=== PATIENT | female | born 1995 | race Caucasian/White ===

== ENCOUNTER 2016-02-26 18:46 | Emergency (ER) | payer OTHER ==
[~2016-02-26] VITALS: Ht 157.5 cm; Wt 61.7 kg
[2016-02-26 19:00] VITALS: Ht 157.5 cm; Wt 61.7 kg
[2016-02-26] MEDS ORDERED: SODIUM CHLORIDE 0.9% 500ML 500 ML IV STA (20:04)
[2016-02-26] MEDS ORDERED: SODIUM CHLORIDE 0.9% 1000ML 1,000 ML IV STA (20:04)
[2016-02-26 20:10] LABS: BASO % 0.2 %; BASO ABS # 0.03 K/uL (0-0.2); COMPLETE YES; HEMATOCRIT 37.7 % (37-47); IG% 0.2 %; LYMPH % 24.3 %; MEAN CELL VOLUME 87.7 fL (80-100); MEAN CORPUSCULAR HGB CONC 34.2 g/dl (32-36); MEAN PLATELET VOLUME 10.9 fL (7.4-10.4); MONO % 7.1 %; NEUT % 67.2 %; PLATELET COUNT 260 K/uL (130-400); WHITE BLOOD COUNT 12.74 K/uL (4.8-10.8)
[2016-02-26 20:14] LABS: URINE APPEARANCE TURBID (CLEAR); URINE BILIRUBIN NEG (NEG); URINE COLOR YELLOW; URINE EPITHELIAL CELL AUTO 20-30 /lpf (0-5); URINE NITRITE NEG (NEG); URINE PH 7.5 (4.5-7.5); URINE SPECIFIC GRAVITY 1.022 (1.000-1.030); UROBILINOGEN NEG (NEG); ZZUR CULT IF INDIC CLEAN CATCH YES
[2016-02-26 20:15] LABS: MANUAL MICROSCOPIC REQUIRED? NO; REVIEW REQ? NO
[2016-02-26] MEDS ORDERED: FAMOTIDINE 20 MG TAB PO ONE (20:15)
[2016-02-26 20:27] LABS: ALT/SGPT 16 U/L (12-78); BLOOD UREA NITROGEN 13 mg/dl (7-18); BUN/CREATININE RATIO 29.3 (10-20); CALCIUM 8.9 mg/dl (8.5-10.1); CARBON DIOXIDE 26 mmol/L (21-32); CHLORIDE 107 mmol/L (98-107); CREATININE 0.44 mg/dl (0.60-1.20); GLUCOSE 80 mg/dl (70-99); POTASSIUM 3.6 mmol/L (3.5-5.1); SODIUM 142 mmol/L (136-145)
[2016-02-26 20:30] LABS: ALKALINE PHOSPHATASE 36 U/L (45-117); AST/SGOT 16 U/L (15-37)
--- NOTE | 2016-02-26 20:38 | EMERGENCY ROOM VISIT NOTE ---
History Report prepared by Laila: Juvenal Lindo Under the Supervision of: Dr. Isamar Newton M.D. First contact with patient: 20:00 Chief Complaint: ABDOMINAL PAIN Stated Complaint: ABDOMINAL PAIN Nursing Triage Summary: pt c/o abd pain that comes and goes, states a couple weeks ago was constipated History of Present Illness The patient is a 20 year old female who presents to the Emergency Room with complaints of waxing and waning left upper quadrant abdominal pain that began two weeks prior to arrival. The patient describes her pain as sharp and notices the pain the most when she is hungry. She did note a fever of 99 degrees a few days ago, but it has resolved at this time. She denies any urinary irregularities and had her LNMP three weeks ago, which was on schedule with her control. She denies any unusual vaginal discharge. Source of History: patient Onset: Two weeks [employer] Position: abdomen (RUQ) Quality: sharp Associated Symptoms: + fevers Review of Systems See HPI for pertinent positives & negatives. A total of 10 systems reviewed and were otherwise negative. Past Medical & Surgical No past medical/surgical history Family History No pertinent family history. Social History Smoking Status: Never Smoker Marital Status: in relationship Housing Status: lives with roommate Occupation Status: [employer] student Current/Historical Medications Scheduled Control Pills ( Control Pills), 1 TAB PO DAILY Famotidine (Pepcid), 20 MG PO BID Allergies Coded Allergies: No Known Allergies (Unverified , 02/26/16) Physical Exam Vital Signs Date Time Temp Pulse Resp B/P Pulse Ox O2 Delivery O2 Flow Rate FiO2 02/26/16 23:17 37.0 91 18 102/62 99 02/26/16 23:12 91 18 102/62 99 Room Air 02/26/16 19:00 37.0 95 18 104/60 96 Room Air Physical Exam Vital signs reviewed. General: Well-appearing female, in no significant distress. HEENT: No scleral icterus, PERRLA, neck supple. Atraumatic. Cardiovascular: Regular rate and rhythm, no extra sounds. Pulmonary: Clear to auscultation bilaterally, normal work of breathing. Abdomen: Mild left upper quadrant abdominal pain. Soft, nontender, nondistended , positive bowel sounds. Musculoskeletal: Atraumatic, no peripheral edema. Neurologic: Patient awake alert and oriented x 3 Skin: Warm, dry, no rash Medical Decision & Procedures ER Provider Diagnostic Interpretation: X-ray results as stated below per my interpretation and radiologist interpretation. Other radiology results as stated below per my review and radiologist interpretation: ECTOPIC ULTRASOUND CLINICAL HISTORY: Pelvic pain and positive test COMPARISON STUDY: No previous studies for comparison. FINDINGS: A single live intrauterine gestation was visualized. A normal-appearing yolk sac was visualized. The crown-rump length measured 17 mm corresponding to an estimated postmenstrual age of 8 weeks and 1 day. There is a suspected trace subchorionic hemorrhage. The patient refused endovaginal scanning. The maternal right ovary measured 39 x 15 x 18 mm. The maternal left ovary measured 36 x 17 x 22 mm. There is a 13 mm left ovarian corpus luteum. The embryonic heart rate was 162. IMPRESSION: 1. Single alive intrauterine gestation. The estimated postmenstrual age is 8 weeks and 1 day 2. Suspected trace subcutaneous chorionic hemorrhage 3. Patient refused endovaginal scanning Electronically signed by: Darrick Sanders M.D. 02/26/2016 9:28 PM Dictated Date/Time: 02/26/2016 9:26 PM Laboratory Results 02/26/16 19:55 Red Blood Count 4.30, Mean Corpuscular Volume 87.7, Mean Corpuscular Hemoglobin 30.0, Mean Corpuscular Hemoglobin Concent 34.2, Mean Platelet Volume 10.9, Neutrophils (%) (Auto) 67.2, Lymphocytes (%) (Auto) 24.3, Monocytes (%) (Auto) 7.1, Eosinophils (%) (Auto) 1.0, Basophils (%) (Auto) 0.2, Neutrophils # (Auto) 8.56, Lymphocytes # (Auto) 3.10, Monocytes # (Auto) 0.90, Eosinophils # (Auto) 0.13, Basophils # (Auto) 0.03 02/26/16 19:55 Test 02/26/16 19:55 White Blood Count 12.74 K/uL (4.8-10.8) Red Blood Count 4.30 M/uL (4.2-5.4) Hemoglobin 12.9 g/dL (12.0-16.0) Hematocrit 37.7 % (37-47) Mean Corpuscular Volume 87.7 fL (80-100) Mean Corpuscular Hemoglobin 30.0 pg (25-34) Mean Corpuscular Hemoglobin Concent 34.2 g/dl (32-36) Platelet Count 260 K/uL (130-400) Mean Platelet Volume 10.9 fL (7.4-10.4) Neutrophils (%) (Auto) 67.2 % Lymphocytes (%) (Auto) 24.3 % Monocytes (%) (Auto) 7.1 % Eosinophils (%) (Auto) 1.0 % Basophils (%) (Auto) 0.2 % Neutrophils # (Auto) 8.56 K/uL (1.4-6.5) Lymphocytes # (Auto) 3.10 K/uL (1.2-3.4) Monocytes # (Auto) 0.90 K/uL (0.11-0.59) Eosinophils # (Auto) 0.13 K/uL (0-0.5) Basophils # (Auto) 0.03 K/uL (0-0.2) RDW Standard Deviation 42.6 fL (36.4-46.3) RDW Coefficient of Variation 13.3 % (11.5-14.5) Immature Granulocyte % (Auto) 0.2 % Immature Granulocyte # (Auto) 0.02 K/uL (0.00-0.02) Urine Color YELLOW Urine Appearance TURBID (CLEAR) Urine pH 7.5 (4.5-7.5) Urine Specific [place] 1.022 (1.000-1.030) Urine Protein NEG (NEG) Urine Glucose (UA) NEG (NEG) Urine Ketones NEG (NEG) Urine Occult Blood NEG (NEG) Urine Nitrite NEG (NEG) Urine Bilirubin NEG (NEG) Urine Urobilinogen NEG (NEG) Urine Leukocyte Esterase NEG (NEG) Urine WBC (Auto) 1-5 /hpf (0-5) Urine RBC (Auto) 0-4 /hpf (0-4) Urine Hyaline Casts (Auto) 1-5 /lpf (0-5) Urine Epithelial Cells (Auto) 20-30 /lpf (0-5) Urine Bacteria (Auto) 1+ (NEG) Anion Gap 9.0 mmol/L (3-11) Est Creatinine Clear Calc Drug Dose 174.8 ml/min Estimated GFR () > 150.0 Estimated GFR (Non- 144.3 BUN/Creatinine Ratio 29.3 (10-20) Calcium Level 8.9 mg/dl (8.5-10.1) Total Bilirubin 0.1 mg/dl (0.2-1) Aspartate Amino Transf (AST/SGOT) 16 U/L (15-37) Alanine Aminotransferase (ALT/SGPT) 16 U/L (12-78) Alkaline Phosphatase 36 U/L (45-117) Total Protein 6.9 gm/dl (6.4-8.2) Albumin 3.5 gm/dl (3.4-5.0) Globulin 3.4 gm/dl (2.5-4.0) Albumin/Globulin Ratio 1.0 (0.9-2) Lipase 155 U/L (73-393) Human Chorionic Gonadotropin, Quant 43551 mIU/mL Date/Time Source Procedure Growth Status 02/26/16 19:55 Urine , Clean Catch Urine Culture - Final Lactobacillus Species Complete Laboratory results per my review. Medications Administered Medications (Trade) Dose Ordered Sig/Bon Route Start Time Stop Time Status Last Admin Dose Admin Famotidine 20 mg 20 mg NOW ONCE PO 02/26/16 20:15 02/26/16 20:16 DC 02/26/16 20:23 20 MG Sodium Chloride 1,000 ml @ 125 mls/hr Q8H STAT IV 02/26/16 20:04 02/27/16 00:10 DC 02/26/16 20:04 125 MLS/HR Sodium Chloride (Nss 500ml) 500 ml @ 999 mls/hr Q31M STAT IV 02/26/16 20:04 02/26/16 20:34 DC 02/26/16 20:04 999 MLS/HR ED Course 2002: Past medical records reviewed. The patient was evaluated in room C12. A complete history and physical examination was performed. 2004: Ordered Sodium Chloride 500 mL @ 999 mL/hr IV, Sodium Chloride 1000 mL @ 125 mL/hr IV. 2015: Ordered Famotidine 20 mg PO. 9: Upon reevaluation, the patient appeared to have improvement of her symptoms. I discussed the results of the tests with the patient. I discussed findings with her. She verbalized agreement of the treatment plan. The patient was discharged home Medical Decision The patient's history was concerning for abdominal pain. Differential diagnosis: Etiologies such as appendicitis, diverticulitis, PUD, biliary pathology, UTI, pancreatitis, obstruction, mesenteric ischemia, aortic pathology, infections, inflammatory bowel disease, renal colic, as well as others were entertained. This patient was evaluated and appeared to be in no significant distress. Patient's urine test is positive. This was surprising to the patient. Ultrasound of the pelvis was performed and reveals an approximate 8 week gestation. Patient was given 20 mg of Pepcid for her gastritis symptoms. Laboratory work reveals a mild leukocytosis which is consistent with her . Urinalysis is negative. Patient was informed of the findings. She was given resources for outpatient follow-up. She will return to the ER for worsening of symptoms or any medical concerns. Impression Primary Impression: First trimester Additional Impression: Gastritis Scribe Attestation The scribe's documentation has been prepared under my direction and personally reviewed by me in its entirety. I confirm that the note above accurately reflects all work, treatment, procedures, and medical decision making performed by me. Departure Information Dispostion Home / Self-Care Prescriptions Famotidine (Pepcid) 20 Mg Tab 20 MG PO BID, #60 TAB Prov: Isamar Newton M.D. 02/26/16 Forms HOME CARE DOCUMENTATION FORM, IMPORTANT VISIT INFORMATION Patient Instructions My [facility] Additional Instructions Diagnosis: First trimester , gastritis Pepcid 20 mg twice daily for 30 days. Drink plenty of clear fluids. Start a vitamin with iron daily. Avoid alcohol, cigarettes, aspirin or ibuprofen. Follow-up with [facility] as soon as possible to initiate care. Return to the emergency department for worsening of symptoms or any medical concerns. Problem Qualifiers Additional Impression: Gastritis Gastritis type: unspecified gastritis Chronicity: acute Gastritis bleeding : without bleeding Qualified Codes: K29.00 - Acute gastritis without bleeding
--- NOTE | 2016-02-26 21:30 | DIAGNOSTIC IMAGING REPORT ---
ECTOPIC ULTRASOUND CLINICAL HISTORY: Pelvic pain and positive test COMPARISON STUDY: No previous studies for comparison. FINDINGS: A single live intrauterine gestation was visualized. A normal-appearing yolk sac was visualized. The crown-rump length measured 17 mm corresponding to an estimated postmenstrual age of 8 weeks and 1 day. There is a suspected trace subchorionic hemorrhage. The patient refused endovaginal scanning. The maternal right ovary measured 39 x 15 x 18 mm. The maternal left ovary measured 36 x 17 x 22 mm. There is a 13 mm left ovarian corpus luteum. The embryonic heart rate was 162. IMPRESSION: 1. Single alive intrauterine gestation. The estimated postmenstrual age is 8 weeks and 1 day 2. Suspected trace subcutaneous chorionic hemorrhage 3. Patient refused endovaginal scanning Electronically signed by: Darrick Sanders M.D. 02/26/2016 9:28 PM Dictated Date/Time: 02/26/2016 9:26 PM
[2016-02-26] MEDS ORDERED: FAMO20TA11 PO (22:11)
[2016-02-26 23:17] VITALS: BP 102/62; PULSE 91; TEMP 37; O2SAT 99
== END 2016-02-26 23:18 | disposition home or self-care (01) ==
LOC: C.EDB 18:48 → C.EDC 23:18
DX: K29.00 Acute gastritis without bleeding (principal); Z33.1 Pregnant state, incidental

== ENCOUNTER 2016-04-15 16:15 | Emergency (ER) | payer OTHER ==
[~2016-04-15] VITALS: Ht 154.9 cm; Wt 62.4 kg
[~2016-04-15 16:15] MED LIST: FAMO20TA11 PO
[2016-04-15 16:18] VITALS: TEMP 36.9; Ht 154.9 cm; Wt 62.4 kg
[2016-04-15] MEDS ORDERED: IBUPROFEN 600 MG TAB PO STA (16:28)
[2016-04-15] MEDS ORDERED: ASCO500C43 PO (16:31)
[2016-04-15] MEDS ORDERED: MULT-513 PO (16:31)
--- NOTE | 2016-04-15 17:04 | DIAGNOSTIC IMAGING REPORT ---
RIGHT TIBIA AND FIBULA 2 VIEWS CLINICAL HISTORY: Right leg injury. FINDINGS: AP and lateral views of the right tibia and fibula are obtained. No prior studies are available for comparison at the time of dictation. The skeletal structures are well mineralized. No fracture is seen. The knee and ankle joints are grossly maintained. Pretibial soft tissue edema is noted. IMPRESSION: Pretibial soft tissue edema with no radiographic evidence of fracture. Electronically signed by: Louie Nevarez M.D. 04/15/2016 5:03 PM Dictated Date/Time: 04/15/2016 5:02 PM
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
[2016-04-15 17:17] VITALS: BP 109/74; PULSE 60; O2SAT 98
[2016-04-15] MEDS ORDERED: BCPILLS PO (21:57)
== END 2016-04-15 17:18 | disposition home or self-care (01) ==
LOC: C.EDB 16:16 → C.EDD 17:18
DX: S80.11XA Contusion of right lower leg, initial encounter (principal); Z79.3 Long term (current) use of hormonal contraceptives; J45.909 Unspecified asthma, uncomplicated; V03.10XA Pedestrian on foot injured in collision with car, pick-up truck or van in traffic accident, initial encounter

== ENCOUNTER 2017-01-31 18:46 | Emergency (ER) | payer OTHER ==
[~2017-01-31] VITALS: Ht 154.9 cm; Wt 63.4 kg
[~2017-01-31 18:46] MED LIST changes: +ASCO500C43 PO; -FAMO20TA11 PO; +MULT-513 PO
[2017-01-31 18:50] VITALS: TEMP 36.8; Ht 154.9 cm; Wt 63.4 kg
[2017-01-31 19:43] LABS: BASO % 0.3 %; BASO ABS # 0.03 K/uL (0-0.2); COMPLETE YES; EOS % 1.8 %; HEMATOCRIT 36.9 % (37-47); IG% 0.2 %; LYMPH % 29.4 %; LYMPH ABS # 3.18 K/uL (1.2-3.4); MEAN CELL VOLUME 87.4 fL (80-100); MEAN CORPUSCULAR HEMOGLOBIN 30.1 pg (25-34); MEAN CORPUSCULAR HGB CONC 34.4 g/dl (32-36); MEAN PLATELET VOLUME 10.7 fL (7.4-10.4); MONO % 8.8 %; NEUT % 59.5 %; PLATELET COUNT 225 K/uL (130-400); RED BLOOD COUNT 4.22 M/uL (4.2-5.4); WHITE BLOOD COUNT 10.82 K/uL (4.8-10.8)
[2017-01-31 20:04] LABS: ALT/SGPT 17 U/L (12-78); BLOOD UREA NITROGEN 10 mg/dl (7-18); BUN/CREATININE RATIO 20.2 (10-20); CALCIUM 8.6 mg/dl (8.5-10.1); CARBON DIOXIDE 25 mmol/L (21-32); CHLORIDE 106 mmol/L (98-107); CREATININE 0.49 mg/dl (0.60-1.20); GLUCOSE 83 mg/dl (70-99); POTASSIUM 3.6 mmol/L (3.5-5.1); SODIUM 137 mmol/L (136-145)
[2017-01-31 20:07] LABS: ALB/GLOB RATIO 1.2 (0.9-2); ALKALINE PHOSPHATASE 42 U/L (45-117); AST/SGOT 15 U/L (15-37)
[2017-01-31 20:19] LABS: URINE APPEARANCE CLOUDY (CLEAR); URINE BILIRUBIN NEG (NEG); URINE COLOR YELLOW; URINE EPITHELIAL CELL AUTO >30 /lpf (0-5); URINE NITRITE NEG (NEG); URINE PH 6.5 (4.5-7.5); URINE SPECIFIC GRAVITY 1.025 (1.000-1.030); UROBILINOGEN NEG (NEG); ZZUR CULT IF INDIC CLEAN CATCH YES
[2017-01-31 20:22] LABS: MANUAL MICROSCOPIC REQUIRED? NO; REVIEW REQ? NO
[2017-01-31] MEDS ORDERED: PROAIR INH (20:32)
[2017-01-31] MEDS ORDERED: BCPILLS PO (21:57)
[2017-01-31 22:33] VITALS: BP 99/64; PULSE 68; O2SAT 99
--- NOTE | 2017-01-31 22:44 | DIAGNOSTIC IMAGING REPORT ---
LIMITED (US), TRANSVAGINAL CLINICAL HISTORY: 21 years-old Female presenting with , LUQ pain. TECHNIQUE: Real-time grayscale and M-mode Doppler ultrasound imaging of the pelvis was performed first using a transabdominal probe and subsequently transvaginal for better characterization. Additionally, color and spectral Doppler ultrasound imaging of the adnexa was performed. COMPARISON: 02/26/2016. FINDINGS: Uterus: Single live intrauterine . A normal-appearing yolk sac and pole are visualized. [place]-rump length measures 9 mm with an estimated gestational age of 6 weeks 6 days. heart rate 137 beats per minute. Anteverted uterus. Normal amniotic fluid volume. Unable to accurately assess placental implantation secondary to early gestational age. No perigestational fluid to suggest hemorrhage. Cervix long and closed. Right adnexa: Right ovary normal. Right ovary measures 3.2 x 1.6 x 1.7 cm. Normal color Doppler flow and arterial and venous waveforms within the ovarian parenchyma. Left adnexa: Left ovary contains a corpus luteum. Left ovary measures 3.5 x 2.5 x 2.1 cm. Normal color Doppler flow and arterial and venous waveforms within the ovarian parenchyma. Other: No free fluid. IMPRESSION: Single live intrauterine with estimated gestational age 6 weeks 6 days. No ovarian torsion. Left corpus luteum. Electronically signed by: Sammy Reddy M.D. 01/31/2017 10:42 PM Dictated Date/Time: 01/31/2017 10:39 PM
[2017-01-31] MEDS ORDERED: ONDA4TAB10 SL (22:55)
[2017-01-31] MEDS ORDERED: FAMO20TA9 PO (22:55)
--- NOTE | 2017-01-31 22:56 | EMERGENCY ROOM VISIT NOTE ---
History First contact with patient: 18:52 Chief Complaint: ABDOMINAL PAIN Stated Complaint: ABDOMINAL PAIN Nursing Triage Summary: PT presents with LUQ abd pain X 1 week with nausea. PT has no vomiting, denies any diarrhea, PT does have intermittent fever. PT denies any urinay symptoms. History of Present Illness The patient is a 21 year old female who presents to the Emergency Room with complaints of Social History Smoking Status: Never Smoker Marital Status: in relationship Housing Status: lives with roommate Occupation Status: [employer] student Current/Historical Medications Scheduled Control Pills ( Control Pills), 1 TAB PO DAILY Famotidine (Pepcid), 1 TAB PO BID Ondasetron Odt (Zofran Odt), 4 MG SL Q6H Scheduled PRN [Proair], 2 PUFF INH Q4H PRN for SOB/Wheezing Physical Exam Vital Signs Date Time Temp Pulse Resp B/P (MAP) Pulse Ox O2 Delivery O2 Flow Rate FiO2 01/31/17 22:33 68 16 99/64 99 Room Air 01/31/17 21:34 75 16 111/50 98 Room Air 01/31/17 20:30 71 111/64 99 Room Air 01/31/17 19:57 70 16 112/62 98 Room Air 01/31/17 18:50 36.8 100 18 116/78 98 Room Air Medical Decision & Procedures Laboratory Results 01/31/17 19:30 Red Blood Count 4.22, Mean Corpuscular Volume 87.4, Mean Corpuscular Hemoglobin 30.1, Mean Corpuscular Hemoglobin Concent 34.4, Mean Platelet Volume 10.7, Neutrophils (%) (Auto) 59.5, Lymphocytes (%) (Auto) 29.4, Monocytes (%) (Auto) 8.8, Eosinophils (%) (Auto) 1.8, Basophils (%) (Auto) 0.3, Neutrophils # (Auto) 6.44, Lymphocytes # (Auto) 3.18, Monocytes # (Auto) 0.95, Eosinophils # (Auto) 0.20, Basophils # (Auto) 0.03 01/31/17 19:30 Test 01/31/17 19:30 01/31/17 19:51 White Blood Count 10.82 K/uL (4.8-10.8) Red Blood Count 4.22 M/uL (4.2-5.4) Hemoglobin 12.7 g/dL (12.0-16.0) Hematocrit 36.9 % (37-47) Mean Corpuscular Volume 87.4 fL (80-100) Mean Corpuscular Hemoglobin 30.1 pg (25-34) Mean Corpuscular Hemoglobin Concent 34.4 g/dl (32-36) Platelet Count 225 K/uL (130-400) Mean Platelet Volume 10.7 fL (7.4-10.4) Neutrophils (%) (Auto) 59.5 % Lymphocytes (%) (Auto) 29.4 % Monocytes (%) (Auto) 8.8 % Eosinophils (%) (Auto) 1.8 % Basophils (%) (Auto) 0.3 % Neutrophils # (Auto) 6.44 K/uL (1.4-6.5) Lymphocytes # (Auto) 3.18 K/uL (1.2-3.4) Monocytes # (Auto) 0.95 K/uL (0.11-0.59) Eosinophils # (Auto) 0.20 K/uL (0-0.5) Basophils # (Auto) 0.03 K/uL (0-0.2) RDW Standard Deviation 42.7 fL (36.4-46.3) RDW Coefficient of Variation 13.3 % (11.5-14.5) Immature Granulocyte % (Auto) 0.2 % Immature Granulocyte # (Auto) 0.02 K/uL (0.00-0.02) Anion Gap 6.0 mmol/L (3-11) Est Creatinine Clear Calc Drug Dose 153.6 ml/min Estimated GFR () > 150.0 Estimated GFR (Non- 138.3 BUN/Creatinine Ratio 20.2 (10-20) Calcium Level 8.6 mg/dl (8.5-10.1) Total Bilirubin 0.2 mg/dl (0.2-1) Aspartate Amino Transf (AST/SGOT) 15 U/L (15-37) Alanine Aminotransferase (ALT/SGPT) 17 U/L (12-78) Alkaline Phosphatase 42 U/L (45-117) Total Protein 7.1 gm/dl (6.4-8.2) Albumin 3.8 gm/dl (3.4-5.0) Globulin 3.3 gm/dl (2.5-4.0) Albumin/Globulin Ratio 1.2 (0.9-2) Lipase 148 U/L (73-393) Human Chorionic Gonadotropin, Quant 12207 mIU/mL Urine Color YELLOW Urine Appearance CLOUDY (CLEAR) Urine pH 6.5 (4.5-7.5) Urine Specific [place] 1.025 (1.000-1.030) Urine Protein NEG (NEG) Urine Glucose (UA) NEG (NEG) Urine Ketones NEG (NEG) Urine Occult Blood NEG (NEG) Urine Nitrite NEG (NEG) Urine Bilirubin NEG (NEG) Urine Urobilinogen NEG (NEG) Urine Leukocyte Esterase SMALL (NEG) Urine WBC (Auto) 10-30 /hpf (0-5) Urine RBC (Auto) 0-4 /hpf (0-4) Urine Hyaline Casts (Auto) 5-10 /lpf (0-5) Urine Epithelial Cells (Auto) >30 /lpf (0-5) Urine Bacteria (Auto) 3+ (NEG) Urine Test POS (NEG) Departure Information Dispostion Home / Self-Care Condition GOOD Prescriptions Ondasetron Odt (ZOFRAN ODT) 4 Mg Tab 4 MG SL Q6H for Nausea, #30 TAB Prov: Jossie Rush PA-C 01/31/17 Famotidine (PEPCID) 20 Mg Tab 1 TAB PO BID for 30 Days, #60 TAB Prov: Jossie Rush PA-C 01/31/17 Referrals No Doctor, Assigned (PCP) Patient Instructions My [facility] Additional Instructions Pepcid: 1 tablet twice daily for the first 30 days. You have been prescribed Zofran to be used for any nausea or vomiting. Take as prescribed. You may also try malcolm for nausea. Tylenol as needed for pain. Follow-up with [facility] as scheduled. Return to the emergency department with worsening abdominal pain, lower abdominal pain, vaginal bleeding or any other new/concerning symptoms.
--- NOTE | 2017-01-31 23:00 | EMERGENCY ROOM VISIT NOTE ---
History First contact with patient: 18:52 Chief Complaint: ABDOMINAL PAIN Stated Complaint: ABDOMINAL PAIN Nursing Triage Summary: PT presents with LUQ abd pain X 1 week with nausea. PT has no vomiting, denies any diarrhea, PT does have intermittent fever. PT denies any urinay symptoms. History of Present Illness The patient is a 21 year old female who presents to the Emergency Room with complaints of left upper quadrant abdominal pain for the past one week. She describes this as an irritated feeling and rates the discomfort a 7/10. She reports associated nausea without vomiting. She does report having intermittent fevers. The patient has a history of gastritis and states that these symptoms feel exactly the same. She previously was prescribed a medication which she took daily which improved her symptoms. 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 The patient states that she believes she is 4-5 weeks . She had a positive urine test at home. Her last menstrual period was December 29. She does have an appointment set up with [facility], but has not yet seen them for this . She denies any changes in bowel movements or urinary symptoms. She denies any lower abdominal pain or vaginal bleeding. Review of Systems A complete 10 point review of systems was reviewed with the patient with pertinent positives and negatives as per history of present illness. All else were negative. Social History Smoking Status: Never Smoker Alcohol Use: none Marital Status: in relationship Housing Status: lives with roommate Occupation Status: [employer] student Current/Historical Medications Scheduled Control Pills ( Control Pills), 1 TAB PO DAILY Famotidine (Pepcid), 1 TAB PO BID Ondasetron Odt (Zofran Odt), 4 MG SL Q6H Scheduled PRN [Proair], 2 PUFF INH Q4H PRN for SOB/Wheezing Physical Exam Vital Signs Date Time Temp Pulse Resp B/P (MAP) Pulse Ox O2 Delivery O2 Flow Rate FiO2 01/31/17 22:33 68 16 99/64 99 Room Air 01/31/17 21:34 75 16 111/50 98 Room Air 01/31/17 20:30 71 111/64 99 Room Air 01/31/17 19:57 70 16 112/62 98 Room Air 01/31/17 18:50 36.8 100 18 116/78 98 Room Air Physical Exam VITALS: Vitals are noted on the nurse's note and reviewed by myself. Vital signs stable. GENERAL: This is a 21-year-old female, in no acute distress, nondiaphoretic, well-developed well-nourished. SKIN: The skin was without rashes. MOUTH: Mucous membranes moist. HEART: Regular rate and rhythm without murmurs gallops or rubs. LUNGS: Clear to auscultation bilaterally without wheezes, rales or rhonchi. ABDOMEN: Positive bowel sounds x 4. Soft, minimal tenderness to palpation in the left upper quadrant. No guarding or rebound tenderness. No tenderness to palpation of the lower abdomen. NEURO: Patient was alert and oriented to person place and time. Medical Decision & Procedures ER Provider Diagnostic Interpretation: LIMITED (US), TRANSVAGINAL CLINICAL HISTORY: 21 years-old Female presenting with , LUQ pain. TECHNIQUE: Real-time grayscale and M-mode Doppler ultrasound imaging of the pelvis was performed first using a transabdominal probe and subsequently transvaginal for better characterization. Additionally, color and spectral Doppler ultrasound imaging of the adnexa was performed. COMPARISON: 02/26/2016. FINDINGS: Uterus: Single live intrauterine . A normal-appearing yolk sac and pole are visualized. [place]-rump length measures 9 mm with an estimated gestational age of 6 weeks 6 days. heart rate 137 beats per minute. Anteverted uterus. Normal amniotic fluid volume. Unable to accurately assess placental implantation secondary to early gestational age. No perigestational fluid to suggest hemorrhage. Cervix long and closed. Right adnexa: Right ovary normal. Right ovary measures 3.2 x 1.6 x 1.7 cm. Normal color Doppler flow and arterial and venous waveforms within the ovarian parenchyma. Left adnexa: Left ovary contains a corpus luteum. Left ovary measures 3.5 x 2.5 x 2.1 cm. Normal color Doppler flow and arterial and venous waveforms within the ovarian parenchyma. Other: No free fluid. IMPRESSION: Single live intrauterine with estimated gestational age 6 weeks 6 days. No ovarian torsion. Left corpus luteum. Laboratory Results 01/31/17 19:30 Red Blood Count 4.22, Mean Corpuscular Volume 87.4, Mean Corpuscular Hemoglobin 30.1, Mean Corpuscular Hemoglobin Concent 34.4, Mean Platelet Volume 10.7, Neutrophils (%) (Auto) 59.5, Lymphocytes (%) (Auto) 29.4, Monocytes (%) (Auto) 8.8, Eosinophils (%) (Auto) 1.8, Basophils (%) (Auto) 0.3, Neutrophils # (Auto) 6.44, Lymphocytes # (Auto) 3.18, Monocytes # (Auto) 0.95, Eosinophils # (Auto) 0.20, Basophils # (Auto) 0.03 01/31/17 19:30 Test 01/31/17 19:30 01/31/17 19:51 White Blood Count 10.82 K/uL (4.8-10.8) Red Blood Count 4.22 M/uL (4.2-5.4) Hemoglobin 12.7 g/dL (12.0-16.0) Hematocrit 36.9 % (37-47) Mean Corpuscular Volume 87.4 fL (80-100) Mean Corpuscular Hemoglobin 30.1 pg (25-34) Mean Corpuscular Hemoglobin Concent 34.4 g/dl (32-36) Platelet Count 225 K/uL (130-400) Mean Platelet Volume 10.7 fL (7.4-10.4) Neutrophils (%) (Auto) 59.5 % Lymphocytes (%) (Auto) 29.4 % Monocytes (%) (Auto) 8.8 % Eosinophils (%) (Auto) 1.8 % Basophils (%) (Auto) 0.3 % Neutrophils # (Auto) 6.44 K/uL (1.4-6.5) Lymphocytes # (Auto) 3.18 K/uL (1.2-3.4) Monocytes # (Auto) 0.95 K/uL (0.11-0.59) Eosinophils # (Auto) 0.20 K/uL (0-0.5) Basophils # (Auto) 0.03 K/uL (0-0.2) RDW Standard Deviation 42.7 fL (36.4-46.3) RDW Coefficient of Variation 13.3 % (11.5-14.5) Immature Granulocyte % (Auto) 0.2 % Immature Granulocyte # (Auto) 0.02 K/uL (0.00-0.02) Anion Gap 6.0 mmol/L (3-11) Est Creatinine Clear Calc Drug Dose 153.6 ml/min Estimated GFR () > 150.0 Estimated GFR (Non- 138.3 BUN/Creatinine Ratio 20.2 (10-20) Calcium Level 8.6 mg/dl (8.5-10.1) Total Bilirubin 0.2 mg/dl (0.2-1) Aspartate Amino Transf (AST/SGOT) 15 U/L (15-37) Alanine Aminotransferase (ALT/SGPT) 17 U/L (12-78) Alkaline Phosphatase 42 U/L (45-117) Total Protein 7.1 gm/dl (6.4-8.2) Albumin 3.8 gm/dl (3.4-5.0) Globulin 3.3 gm/dl (2.5-4.0) Albumin/Globulin Ratio 1.2 (0.9-2) Lipase 148 U/L (73-393) Human Chorionic Gonadotropin, Quant 65800 mIU/mL Urine Color YELLOW Urine Appearance CLOUDY (CLEAR) Urine pH 6.5 (4.5-7.5) Urine Specific [place] 1.025 (1.000-1.030) Urine Protein NEG (NEG) Urine Glucose (UA) NEG (NEG) Urine Ketones NEG (NEG) Urine Occult Blood NEG (NEG) Urine Nitrite NEG (NEG) Urine Bilirubin NEG (NEG) Urine Urobilinogen NEG (NEG) Urine Leukocyte Esterase SMALL (NEG) Urine WBC (Auto) 10-30 /hpf (0-5) Urine RBC (Auto) 0-4 /hpf (0-4) Urine Hyaline Casts (Auto) 5-10 /lpf (0-5) Urine Epithelial Cells (Auto) >30 /lpf (0-5) Urine Bacteria (Auto) 3+ (NEG) Urine Test POS (NEG) Medical Decision Differential diagnosis includes gastritis, GERD, pancreatitis, splenic injury, among others. The patient is a 21-year-old female who presents today complaining of left upper quadrant pain consistent with previous episodes of gastritis she has had. Labs revealed mild leukocytosis and were otherwise fairly unremarkable. Patient does report a positive test. ultrasound was performed and showed a gestation of 6 weeks 6 days with normal heart rate. Patient will be placed on Pepcid. She was instructed to begin taking a vitamin. She was prescribed Zofran for occasional nausea. She has an appointment scheduled with [facility] for follow-up. Based on the patient's presentation and work up, I feel the patient is stable for outpatient treatment. The patient was educated to return to the emergency department for any worsening of their current condition or new/concerning symptoms. She will follow up with [facility]. Medication Reconcilliation Current Medication List: was personally reviewed by me Blood Pressure Screening Patient's blood pressure: Normal blood pressure Impression Primary Impression: Left upper quadrant pain Departure Information Dispostion Home / Self-Care Condition GOOD Prescriptions Ondasetron Odt (ZOFRAN ODT) 4 Mg Tab 4 MG SL Q6H for Nausea, #30 TAB Prov: Jossie Rush PA-C 01/31/17 Famotidine (PEPCID) 20 Mg Tab 1 TAB PO BID for 30 Days, #60 TAB Prov: Jossie Rush PA-C 01/31/17 Referrals No Doctor, Assigned (PCP) Patient Instructions My [facility] Additional Instructions Pepcid: 1 tablet twice daily for the first 30 days. You have been prescribed Zofran to be used for any nausea or vomiting. Take as prescribed. You may also try malcolm for nausea. Tylenol as needed for pain. Follow-up with [facility] as scheduled. Return to the emergency department with worsening abdominal pain, lower abdominal pain, vaginal bleeding or any other new/concerning symptoms.
--- NOTE | 2017-02-01 16:44 | Pharmacy Progress Note ---
ED Pharmacist Culture FollowUp Date of Service: Feb 01, 2017. Per Jossie Rush PA-C patient should be placed on keflex 500mg QID X 7 days. I attempted to call the patient twice and left a voicemail to return the call. I called in the prescription to the [facility] pharmacy and verified she had not yet picked up her other prescriptions. Will continue to try and contact patient to inform her of new prescription.
== END 2017-01-31 23:03 | disposition home or self-care (01) ==
LOC: C.EDB 18:46 → C.EDC 23:03
DX: O26.891 Other specified pregnancy related conditions, first trimester (principal); R10.12 Left upper quadrant pain; O99.611 Diseases of the digestive system complicating pregnancy, first trimester; K29.70 Gastritis, unspecified, without bleeding; Z3A.01 Less than 8 weeks gestation of pregnancy; Z79.899 Other long term (current) drug therapy